=== PATIENT | female | born 1985 | race African-American/Black ===

== ENCOUNTER 2016-12-04 13:25 | Emergency (ER) | payer BC, OTHER ==
[~2016-12-04] VITALS: Ht 170.2 cm; Wt 98.4 kg
[~2016-12-04 13:25] MED LIST: NORCO 5-325 TA1 EACH ORAL
--- NOTE | 2016-12-04 13:43 | Emergency Room Report ---
History of Present Illness General Chief Complaint: Upper Extremity Injury Source: Patient ([place]) Present Illness HPI Patient is a 31-year-old female who presents today in complaints of right arm pain that began last night. Patient states he was intoxicated and fell last night while out with friends. She does not recall exactly what happened. She is complaining of a headache and pain to her right elbow, made worse with movement. The medications for it. She denies any head trauma, headache, blurred vision, double vision, nausea, vomiting or associated symptoms. ([place]) Allergies: Coded Allergies: No Known Allergies (Unverified , 06/13/14) Patient History Reviewed Nursing Documentation: PMH: Agreed, PSxH: Agreed ([place]) Nursing Documentation-PMH Past Medical History: No Stated History ([place]) Review of Systems Musculoskeletal: Reports: joint pain All Other Systems: negative except mentioned in HPI ([place]) Physical Exam Vital Signs Date Time Temp Pulse Resp B/P (MAP) Pulse Ox O2 Delivery O2 Flow Rate FiO2 12/04/16 13:29 97.9 93 20 127/80 100 Room Air Sp02 EP Interpretation: reviewed, normal General Appearance: no apparent distress, alert, GCS 15, non-toxic Head: normocephalic, atraumatic Eyes: bilateral eye normal inspection, bilateral eye PERRL ENT: hearing grossly normal, normal pharynx, no angioedema, normal voice Neck: full range of motion, supple/symm/no masses Respiratory: chest non-tender, lungs clear, normal breath sounds, speaking full sentences Cardiovascular #1: regular rate, rhythm, no edema Cardiovascular #2: 2+ carotid (R), 2+ carotid (L), 2+ radial (R), 2+ radial (L) , 2+ dorsalis pedis (R), 2+ dorsalis pedis (L) Gastrointestinal: normal bowel sounds, non tender, soft, non-distended, no guarding, no rebound Rectal: deferred Genitourinary: normal inspection, no CVA tenderness Musculoskeletal: back normal, gait/station normal, non-tender, other - tenderness to palpation over the right elbow, TTP over right forearm, decreased ROM with flexion and extension right elbow. No TTP over right hand, wrist, or shoulder Neurologic: alert, oriented x3, responsive, motor strength/tone normal, sensory intact, speech normal, other - NVI, radial pulses present and equal, cap refill is brisk Psychiatric: judgement/insight normal, memory normal, mood/affect normal, no suicidal/homicidal ideation Reflexes: 3+ bicep (R), 3+ bicep (L), 3+ tricep (R), 3+ tricep (L), 3+ knee (R) , 3+ knee (L) Skin: normal color, no rash, warm/dry, well hydrated Lymphatic: no adenopathy ([place].AFarhad) Medical Decision Making PA Attestation supervising physician is Dr. Calles ([place].Jill) ER Course No evidence of fracture on x-ray. Patient is placed in a sling, neurovascularly intact before and after things place. Reevaluation 1454, patient states he was improving with medication. Patient instructed to follow up with PCP for re-evaluation.Pt understands is agreeable with plan. Discussed case with Dr. Calles who agreed with treatment and disposition. ([place].Jill) ER Course X-ray read by radiology showed evidence of joint effusion. The patient was advised followup with primary care physician for repeat imaging as well as orthopedic referral within one week. The patient is advised to remain in her sling until seen by her physician. (Dallin Calles) Other X-Ray Diagnostic Results Other X-Ray Diagnostic Results : X-Ray ordered: elbow # of Views/Limited Vs Complete: 3 View Indication: Pain EP Interpretation: Yes Interpretation: no dislocation, no soft tissue swelling, no fractures, other Impression: No acute disease Electronically Signed by: west RODRIGUEZ Scribe Text X-ray forearm 3 views No fracture, normal alignment, no soft tissue swelling Impression: No acute disease ([place] [facility] [facility] Last Vital Signs Date Time Temp Pulse Resp B/P (MAP) Pulse Ox O2 Delivery O2 Flow Rate FiO2 12/04/16 13:29 97.9 93 20 127/80 100 Room Air Status: improved ([place].AFarhad) Status: improved (Dallin Calles) Disposition: HOME, SELF-CARE Condition: Stable Scripts Tramadol Hcl* (ULTRAM*) 50 Mg Tablet 50 MG ORAL Q6H, #20 TAB 0 Refills Prov: [place] 12/04/16 [place] Dec 04, 2016 13:43 Dallin Calles Dec 05, 2016 16:06
[2016-12-04] MEDS ORDERED: Norco 5mg/325mg tab ORAL ONE (13:45)
[2016-12-04 14:28] VITALS: BP 124/78
[2016-12-04] MEDS ORDERED: TRAMADOL HCL50 MG ORAL (14:55)
[2016-12-04 15:01] VITALS: BP 124/78
--- NOTE | 2016-12-05 11:50 | Diagnostic Imaging Report ---
Indications: PAIN, status post fall Technique: Two views of the right forearm Comparison: None Findings: No acute fractures. No dislocations. No radiopaque foreign body Impression: Negative
--- NOTE | 2016-12-05 11:50 | Diagnostic Imaging Report ---
Clinical Indication:PAIN Technique: 3 views of the right wrist Comparison: None Findings: No acute fractures. No dislocations. Joint spaces are preserved Impression: Negative
--- NOTE | 2016-12-05 16:00 | Diagnostic Imaging Report ---
Indications:PAIN Technique: Three or 4 views of the right elbow Comparison: None Findings:There is a joint effusion, manifested by mild elevation of the anterior and posterior fat pads. No definite fracture demonstrated. The joint spaces are preserved. Impression:No definite acute bony trauma. However, evidence of joint effusion raises concern for occult fracture. Recommend reimaging at 7-10 days. Findings discussed by phone with Dr. Calles in the emergency room at the time of interpretation
== END 2016-12-04 15:02 | disposition home or self-care (01) ==
LOC: EMR 14:59
DX: M79.601 Pain in right arm (principal); R51 Headache; M25.521 Pain in right elbow; M25.421 Effusion, right elbow; W19.XXXA Unspecified fall, initial encounter; Y92.89 Other specified places as the place of occurrence of the external cause
CPT/HCPCS: 81025; 99283